=== PATIENT | female | born 1990 | race African-American/Black ===

== ENCOUNTER 2017-02-04 21:48 | Emergency (ER) | payer OTHER ==
--- NOTE | ~2017-02-04 | CT4 ---
[facility] A Service of [facility] RADIOLOGY TEXT RESULTS PATIENT: JANEL SANCHEZ LOCATION: [place] : [birth year] UNIT #: [id number] AGE: [address]: Ector Baird DO SEX: F ORDER DR: [id number] [facility] [address] [place], [place] [address] [id number] E MR#: [id number] Acc #: [id number] NAME: JANEL SANCHEZ : 1990 SEX: F STUDY DATE/TIME: 02/05/2017 0:37 UNIT: [place] ROOM: STUDY DESCRIPTION: CT Abd and Pelv Wo Cont Attending Physician: Ector Baird D.O. Ordering Physician: Ector Baird D.O. Primary Care Physician: Lucille Kendrick M.D. MEDICAL IMAGING REPORT This report is preliminary unless electronic signature is present EXAM CT abdomen and pelvis without contrast INDICATIONS No bowel movement for 2 weeks with generalized abdomen pain now. COMPARISON 04/13/2015. TECHNIQUE Axial 5 mm images were obtained through the abdomen and pelvis without IV or oral contrast. This CT exam was performed with one or more of the following radiation dose reduction techniques: automatic exposure control, adjustment of mA and/or kV according to patient size, and iterative reconstruction. FINDINGS Lung bases are clear. The gallbladder been removed. The liver, spleen, pancreas, adrenal glands and left kidney are normal. The right kidney is situated lower in the abdomen than normal but is otherwise normal. There is inspissated fecal material throughout the entire colon. There is no evidence of obstruction. The small bowel appears normal. The uterus and adnexal regions are normal. The bladder is normal. The bones are unremarkable. IMPRESSION 1. Inspissated fecal material is present throughout the colon. There is no evidence of bowel obstruction or fecal impaction. 2. Prior cholecystectomy. 3. Otherwise normal study. [facility] A Service of [facility] RADIOLOGY TEXT RESULTS PATIENT: JANEL SANCHEZ LOCATION: [place] : [birth year] UNIT #: [id number] AGE: [address]: Ector Baird DO SEX: F ORDER DR: Dictated by... Dion Lin M.D. THIS IS AN ELECTRONICALLY VERIFIED REPORT Dion Lin M.D. at 02/05/2017 2:15 PM FEL/pcl TD: 02/05/2017 01:17 JOB #: [id number] MEDICAL IMAGING REPORT Page 1 of 1 COPY
[2017-02-04 21:48] LABS: BASOPHIL# 0.1 X10e3 (0-0.3); BASOPHIL% 0.6 % (0-2.5); EOSINOPHIL# 0.1 X10e3 (0-0.7); EOSINOPHIL% 0.8 % (0.0-7.0); HEMATOCRIT 38.2 % (35.0-45.0); HEMOGLOBIN 12.8 gm/dL (12.0-16.0); LYMPHOCYTE# 3.2 X10e3 (1.0-3.5); LYMPHOCYTE% 31.2 % (17.0-45.0); MEAN CELL VOLUME 99.8 FL (83-96); MEAN CORPUSCULAR HEMOGLOBIN 33.3 PG (28-34); MEAN CORPUSCULAR HGB CONC 33.4 g/dL (30-36); MEAN PLATELET VOLUME 8.8 FL (6.5-11.5); MONOCYTE# 0.8 X10e3 (0-1.0); MONOCYTE% 8.2 % (3.0-12.0); NEUTROPHIL% 59.2 % (40-75); PLATELET COUNT 236 X10e3 (140-420); RED BLOOD COUNT 3.83 X10e (3.90-5.30); RED CELL DISTRIBUTION WIDTH 13.6 % (11.0-15.5); WHITE BLOOD COUNT 10.2 X10e3 (4.0-10.5)
[~2017-02-04 21:48] MED LIST: AMOXIL250 MG/5 M PO; BACTRIM 400-801 TA1 PO; BACTRIM DS TABL1 TA1 PO; CIPRO PO; COLACE60 MG/15 M PO; FLEET ENEMA133 M1 PR; FLEXERIL10 MG PO; IBUPROFEN600 MG PO; IBUPROFEN800 MG PO; KEFLEX500 MG PO; MACROBID100 MG DOB; MIRALAX17 G1 PO; MOTRIN600 MG PO; NAPROSYN500 MG PO; PHENOBARBITAL30 M1 PO; PYRIDIUM PO; PYRIDIUM100 MG PO; SILVADENE TOP; TYLENOL #3; ZOFRANODT PO; [UNRECOGNIZED DRUG - OTHER] RC
[2017-02-04 21:49] LABS: DIFF IND NO
[2017-02-04 22:39] LABS: ALBUMIN SERUM 4.2 g/dL (3.5-5.0); BILIRUBIN, DIRECT 0.1 mg/dL (0.0-0.2); BILIRUBIN,INDIRECT 0.2 mg/dL (0.0-0.9); BILIRUBIN,TOTAL 0.3 mg/dL (0.2-2.0); CALCIUM SERUM 8.9 mg/dL (8.4-10.2); CREATININE SERUM 0.5 mg/dL (0.6-1.4); POTASSIUM 3.7 mmol/L (3.5-5.1); PROTEIN TOTAL SERUM 8.3 g/dL (6.0-8.3)
[2017-02-04 23:43] LABS: URINE SOURCE CLEAN CATCH
[2017-02-04 23:48] LABS: URINE APPEARANCE CLEAR; URINE BILIRUBIN NEG (NEG); URINE BLOOD NEG (NEG); URINE COLOR YELLOW; URINE GLUCOSE NEG (NEG); URINE KETONE 1+ (NEG); URINE LEUKOCYTE ESTERASE NEG (NEG); URINE NITRATE NEG (NEG); URINE PH 7.5 (5-8); URINE PROTEIN TRACE (NEG); URINE SPECIFIC GRAVITY 1.028 (1.003-1.035)
[2017-02-04 23:49] LABS: CULTURE INDICATED? NO
== END 2017-02-05 05:07 | disposition home or self-care (01) ==
LOC: CED 21:48
PROVIDERS: Emergency Medicine
DX: K59.00 Constipation, unspecified (principal); Z90.49 Acquired absence of other specified parts of digestive tract; Z88.8 Allergy status to other drugs, medicaments and biological substances
CPT/HCPCS: 36415; 51701; 51702; 74176; 80048; 80076; 80184; 81003; 83690; 84703; 85025; 96360; 96361; 99284

== ENCOUNTER 2017-06-05 13:46 | Emergency (ER) | payer OTHER ==
[~2017-06-05] VITALS: Ht 162.6 cm; Wt 63.5 kg
--- NOTE | ~2017-06-05 | CT4 ---
[facility] A Service of [facility] RADIOLOGY TEXT RESULTS PATIENT: JANEL SANCHEZ LOCATION: [place] : [birth year] UNIT #: [id number] AGE: [address]: Edmundo Núñez MD SEX: F ORDER DR: [id number] [facility] [address] [place], [place] [address] [id number] E MR#: [id number] Acc #: [id number] NAME: JANEL SANCHEZ : 1990 SEX: F STUDY DATE/TIME: 06/05/2017 17:03 UNIT: [facility] ROOM: STUDY DESCRIPTION: CT Abd and Pelv Wo Cont Attending Physician: Lucio Núñez M.D. Ordering Physician: Ed Dae Mcdonald M.D. Primary Care Physician: Lucille Kendrick M.D. MEDICAL IMAGING REPORT This report is preliminary unless electronic signature is present EXAM CT abdomen and pelvis without contrast. DATE 06/05/2017 HISTORY Abdominal pain and right lower pelvic pain today. COMPARISON CT abdomen and pelvis without contrast, 02/05/2017. PROCEDURE 3 mm noncontrast axial images through the abdomen and pelvis. Enteric contrast not administered. Sagittal and coronal reformatted images were obtained. This CT exam was performed with one or more of the following radiation dose reduction techniques: automatic exposure control, adjustment of mA and/or kV according to patient size, and iterative reconstruction. FINDINGS There is a large generalized colonic stool burden, greatest within the rectosigmoid and within the transverse colon, consistent with the appearance of constipation, but there is no evidence of high-grade large or small bowel obstruction or active bowel inflammation. The right kidney is ptotic located in the right [id number] abdomen, but this is unchanged from prior and is a congenital finding. Left kidney has a normal noncontrast appearance. The lung bases are clear. Liver, spleen, pancreas, and adrenal glands are normal. Cholecystectomy. Appendix is not visualized but no pericecal [facility] A Service of [facility] RADIOLOGY TEXT RESULTS PATIENT: JANEL SANCHEZ LOCATION: [place] : [birth year] UNIT #: [id number] AGE: [address]: Edmundo Núñez MD SEX: F ORDER DR: inflammation is seen. PELVIS FINDINGS: Urinary bladder and uterus are normal. No pelvic free fluid. No acute osseous abnormalities are identified. IMPRESSION 1. Large colonic stool burden, greatest within the rectosigmoid region and transverse colon. Correlate for constipation symptoms. No evidence of high-grade obstruction. 2. The appendix is not discretely visualized but no pericecal inflammation is appreciated. 3. Cholecystectomy. 4. Congenital ptosis of the right kidney. Dictated by... Bonnie Andersen M.D. THIS IS AN ELECTRONICALLY VERIFIED REPORT Bonnie Andersen M.D. at 06/06/2017 1:54 PM LESLY/marlene TD: 06/06/2017 07:51 JOB #: [id number] MEDICAL IMAGING REPORT Page 1 of 1 COPY
[2017-06-05] MEDS ORDERED: FLORANEX GRANU1 EACH PO (14:50)
[2017-06-05] MEDS ORDERED: PATIENT'S PHARMACY (14:50)
[2017-06-05] MEDS ORDERED: KEFLEX500 MG PO (14:50)
[2017-06-05] MEDS ORDERED: ASCORBIC ACID500 M2 PO (14:50)
[2017-06-05] MEDS ORDERED: VITAMIN D350000 UNIT PO (14:51)
[2017-06-05] MEDS ORDERED: PHENOBARB PO (14:51)
[2017-06-05] MEDS ORDERED: VITAMIN C1000 M1 PO (14:51)
[2017-06-05] MEDS ORDERED: MIRALAX17 GM PO (14:51)
[2017-06-05 15:04] LABS: BASOPHIL# 0.1 X10e3 (0-0.3); BASOPHIL% 1.1 % (0-2.5); EOSINOPHIL% 0.8 % (0.0-7.0); HEMATOCRIT 36.6 % (35.0-45.0); HEMOGLOBIN 12.6 gm/dL (12.0-16.0); LYMPHOCYTE# 2.5 X10e3 (1.0-3.5); MEAN CELL VOLUME 99.1 FL (83-96); MEAN CORPUSCULAR HGB CONC 34.3 g/dL (30-36); MEAN PLATELET VOLUME 8.2 FL (6.5-11.5); MONOCYTE# 0.5 X10e3 (0-1.0); MONOCYTE% 8.6 % (3.0-12.0); NEUTROPHIL# 2.8 X10e3 (1.5-7.1); NEUTROPHIL% 47.5 % (40-75); PLATELET COUNT 311 X10e3 (140-420); RED CELL DISTRIBUTION WIDTH 13.6 % (11.0-15.5); WHITE BLOOD COUNT 5.9 X10e3 (4.0-10.5)
[2017-06-05 15:05] LABS: DIFF IND NO
[2017-06-05 15:30] LABS: ALKALINE PHOSPHATASE 94 U/L (32-92); ALT (SGPT) 49 U/L (10-40); AST (SGOT) 35 U/L (10-42); BILIRUBIN, DIRECT <0.1 mg/dL (0.0-0.2); BILIRUBIN,INDIRECT 0.2 mg/dL (0.0-0.9); BILIRUBIN,TOTAL 0.3 mg/dL (0.2-2.0); BLOOD UREA NITROGEN 7 mg/dL (9-23); BUN/CREATININE RATIO 11.66; CALCIUM SERUM 9.3 mg/dL (8.4-10.2); CARBON DIOXIDE 28 mmol/L (22-31); CHLORIDE 102 mmol/L (100-111); CREATININE SERUM 0.6 mg/dL (0.6-1.4); GLOM FILT RATE Estimated 147.9 mL/min (>60); GLUCOSE FASTING 102 mg/dL (70-110); LIPASE 27 U/L (22-51); POTASSIUM 3.4 mmol/L (3.5-5.1); PROTEIN TOTAL SERUM 8.2 g/dL (6.0-8.3); SODIUM 138 mmol/L (135-145)
[2017-06-05 15:55] LABS: URINE SOURCE CLEAN CATCH
[2017-06-05 16:00] LABS: URINE APPEARANCE CLEAR; URINE BILIRUBIN NEG (NEG); URINE BLOOD NEG (NEG); URINE COLOR YELLOW; URINE GLUCOSE NEG (NEG); URINE KETONE NEG (NEG); URINE LEUKOCYTE ESTERASE 3+ (NEG); URINE NITRATE NEG (NEG); URINE PH 7.5 (5-8); URINE PROTEIN 1+ (NEG); URINE SPECIFIC GRAVITY 1.021 (1.003-1.035)
[2017-06-05 16:03] LABS: CULTURE INDICATED? YES; URINE BACTERIA AUWI NEG (NEGATIVE); URINE SQUAMOUS EPITHELIAL CELL NONE SEEN /[HPF]; UWBCS1 AUWI 200-300 (0-5)
== END 2017-06-05 18:49 | disposition home or self-care (01) ==
LOC: CED 13:46
DX: N39.0 Urinary tract infection, site not specified (principal); K59.00 Constipation, unspecified; Z90.49 Acquired absence of other specified parts of digestive tract; Z79.899 Other long term (current) drug therapy
CPT/HCPCS: 36415; 74176; 80048; 80076; 80184; 81003; 83690; 84703; 85025; 87086; 96361; 96374; 99284; J1885